=== PATIENT | female | born 1955 | race Caucasian/White ===

== ENCOUNTER 2017-03-13 11:10 | Day surgery (SDC) | payer MEDICARE ==
[~2017-03-13 11:10] MED LIST: ALEN70 PO; AMLO5 PO; CALCAVITD PO; DIAZ5 PO; DULO60 PO; GABA300 PO; HYDACE10B PO; HYDACE5 PO; HYDACE5325 PO; LEVFLO500 PO; LOSHYD100 PO; MULVITA PO; NAPR500 PO; PREG150; PROM25 PO; PROP40 PO; PROP60 PO; Percocet 5-3251 EACH PO; SERT100 PO; [UNRECOGNIZED DRUG - CODE]
== END 2017-03-13 11:40 | disposition home or self-care (01) ==
LOC: ORSCSDS 11:10
DX: M54.16 Radiculopathy, lumbar region (principal); I10 Essential (primary) hypertension; F32.9 Major depressive disorder, single episode, unspecified; Z79.899 Other long term (current) drug therapy
CPT/HCPCS: 99211

== ENCOUNTER 2018-12-03 14:47 | Emergency (ER) | payer OTHER, MEDICARE ==
[~2018-12-03] VITALS: Ht 167.6 cm; Wt 56.7 kg
[2018-12-03 15:51] LABS: BASOPHILS PERCENT AUTO 1 % (0-2); EOSINOPHILS ABSOLUTE AUTO 0.23 K/mm3 (0.00-0.68); EOSINOPHILS PERCENT AUTO 3 % (0-6); Hematocrit 45.7 % (33.0-51.0); Hemoglobin 14.6 g/dL (11.5-16.0); IMMATURE GRAN ABSOLUTE AUTO 0.02 K/mm3 (0.00-0.10); IMMATURE GRAN PERCENT AUTO 0 % (0-1); LYMPHOCYTES PERCENT AUTO 20 % (21-46); MONOCYTES ABSOLUTE AUTO 0.84 K/mm3 (0.16-1.47); MONOCYTES PERCENT AUTO 12 % (4-13); Mean Corpuscular HGB 28.6 pg (26.0-34.0); Mean Corpuscular HGB Conc 31.9 g/dL (31.5-36.5); Mean Corpuscular Volume 89 fL (80-100); Mean Platelet Volume 9.2 fL (9.1-12.4); NEUTROPHILS ABSOLUTE AUTO 4.39 K/mm3 (1.96-9.15); NEUTROPHILS PERCENT AUTO 63 % (41-73); Platelet Count 392 K/mm3 (150-400); RDW Coefficient Variation 13.2 % (11.7-14.2); RDW Standard Deviation 43.6 fL (35.1-46.3); Red Blood Cell Count 5.11 M/mm3 (3.80-5.20); White Blood Cell Count 6.98 K/mm3 (4.00-11.30)
[2018-12-03 16:03] LABS: Alanine Aminotransfer (ALT/SGP 21 U/L (12-78); Albumin, Blood 4.1 g/dL (3.4-5.0); Alk Phos 71 U/L (50-136); Anion Gap 4 mmol/L (6-16); Aspartate Aminotrans (AST/SGOT 26 U/L (12-37); Bilirubin, Total 0.4 mg/dL (0.1-1.0); Blood Urea Nitrogen 7 mg/dL (8-24); CO2, Blood 31 mmol/L (21-32); Calcium, Blood 10.1 mg/dL (8.5-10.1); Chloride, Blood 103 mmol/L (98-108); Creatinine, Blood 0.64 mg/dL (0.40-1.00); Globulin, Blood 4.1 g/dL (2.2-4.0); Glomerular Filtration Rate >60 (60-); Glucose, Blood 99 mg/dL (70-99); Potassium, Blood 3.9 mmol/L (3.5-5.5); Sodium, Blood 138 mmol/L (136-145); Total Protein, Blood 8.2 g/dL (6.4-8.2)
[2018-12-03] MEDS ORDERED: IBUP800 PO (18:38)
[2018-12-03] MEDS ORDERED: Robaxin-750750 MG PO (18:38)
== END 2018-12-03 18:46 | disposition home or self-care (01) ==
LOC: ER 14:47
PROVIDERS: Physician Assistant
DX: S16.1XXA Strain of muscle, fascia and tendon at neck level, initial encounter (principal); I10 Essential (primary) hypertension; W19.XXXA Unspecified fall, initial encounter; Z88.1 Allergy status to other antibiotic agents; Z79.899 Other long term (current) drug therapy; Z87.891 Personal history of nicotine dependence
CPT/HCPCS: 36415; 80053; 84484; 85025; 93005; 93010; 99283-25

== ENCOUNTER 2019-03-18 10:58 | Day surgery (SDC) | payer MEDICARE ==
[~2019-03-18] VITALS: Ht 167.6 cm; Wt 55.7 kg
[~2019-03-18 10:58] MED LIST changes: +IBUP800 PO; +Robaxin-750750 MG PO
== END 2019-03-18 12:00 | disposition home or self-care (01) ==
LOC: ORSCSDS 10:58
PROVIDERS: Anesthesiology
PROC: 3E0R33Z Introduction of Anti-inflammatory into Spinal Canal, Percutaneous Approach (ICD-10-PCS; principal; 2019-03-18 12:00)
DX: M54.16 Radiculopathy, lumbar region (principal); I10 Essential (primary) hypertension
CPT/HCPCS: J1040

== ENCOUNTER 2019-06-07 04:17 | Emergency (ER) | payer MEDICARE ==
[~2019-06-07] VITALS: Ht 167.6 cm; Wt 53.5 kg
[2019-06-07] MEDS ORDERED: METO25ER (04:26)
[2019-06-07 04:39] LABS: BASOPHILS ABSOLUTE AUTO 0.07 K/mm3 (0.00-0.23); BASOPHILS PERCENT AUTO 1 % (0-2); EOSINOPHILS ABSOLUTE AUTO 0.17 K/mm3 (0.00-0.68); EOSINOPHILS PERCENT AUTO 2 % (0-6); Hematocrit 44.3 % (33.0-51.0); Hemoglobin 14.9 g/dL (11.5-16.0); IMMATURE GRAN ABSOLUTE AUTO 0.04 K/mm3 (0.00-0.10); IMMATURE GRAN PERCENT AUTO 1 % (0-1); LYMPHOCYTES ABSOLUTE AUTO 1.63 K/mm3 (0.84-5.20); LYMPHOCYTES PERCENT AUTO 21 % (21-46); MONOCYTES PERCENT AUTO 14 % (4-13); Mean Corpuscular HGB 29.6 pg (26.0-34.0); Mean Corpuscular HGB Conc 33.6 g/dL (31.5-36.5); Mean Corpuscular Volume 88 fL (80-100); Mean Platelet Volume 9.3 fL (9.1-12.4); NEUTROPHILS ABSOLUTE AUTO 4.64 K/mm3 (1.96-9.15); NEUTROPHILS PERCENT AUTO 61 % (41-73); Platelet Count 293 K/mm3 (150-400); RDW Coefficient Variation 14.1 % (11.7-14.2); RDW Standard Deviation 45.4 fL (35.1-46.3); Red Blood Cell Count 5.03 M/mm3 (3.80-5.20); White Blood Cell Count 7.65 K/mm3 (4.00-11.30)
[2019-06-07 04:58] LABS: Troponin I <0.015 ng/mL (0.000-0.040)
[2019-06-07 05:01] LABS: Alanine Aminotransfer (ALT/SGP 26 U/L (12-78); Albumin/Globulin Ratio 1.1 (0.8-1.8); Alk Phos 39 U/L (50-136); Anion Gap 6 mmol/L (6-16); Aspartate Aminotrans (AST/SGOT 28 U/L (12-37); Bilirubin, Total 0.5 mg/dL (0.1-1.0); Blood Urea Nitrogen 8 mg/dL (8-24); Bun/Creatinine Ratio 8.9 (12.0-20.0); CO2, Blood 28 mmol/L (21-32); Calcium, Blood 9.7 mg/dL (8.5-10.1); Chloride, Blood 101 mmol/L (98-108); Creatinine, Blood 0.89 mg/dL (0.40-1.00); Globulin, Blood 3.6 g/dL (2.2-4.0); Glomerular Filtration Rate >60 (60-); Glucose, Blood 99 mg/dL (70-99); Potassium, Blood 4.5 mmol/L (3.5-5.5); Sodium, Blood 135 mmol/L (136-145); Total Protein, Blood 7.6 g/dL (6.4-8.2)
== END 2019-06-07 06:21 | disposition home or self-care (01) ==
LOC: ER 04:17
PROVIDERS: Emergency Medicine
DX: I10 Essential (primary) hypertension (principal); K59.00 Constipation, unspecified; M41.9 Scoliosis, unspecified; Z88.1 Allergy status to other antibiotic agents; Z79.899 Other long term (current) drug therapy; Z87.891 Personal history of nicotine dependence
CPT/HCPCS: 36415; 71045; 80053; 84484; 85025; 93005; 93010; 96374; 96375; 99284-25; A9270-GY; J0360; J2405; J2765

== ENCOUNTER 2019-08-14 11:47 | Day surgery (SDC) | payer MEDICARE ==
[~2019-08-14] VITALS: Ht 167.6 cm; Wt 48.5 kg
[~2019-08-14 11:47] MED LIST changes: +METO25ER
[2019-08-14] MEDS ORDERED: Norco 5-325 Ta1 EACH (12:16)
[2019-08-14] MEDS ORDERED: ALPR.5 (12:16)
[2019-08-14] MEDS ORDERED: LISI20 (12:16)
[2019-08-14] MEDS ORDERED: SERT50 (12:16)
--- NOTE | 2019-08-14 12:29 | NUR ---
08/14/19 1229 Koki Brewer CALLED INTO PATIENT ROOM BY CHEO DUE TO PATIENTS BP BEING EXTREMELY ELEVATED. I ADJUST THE BP CUFF AND TAKE IT AGAIN AND I GET A READING OF 234/108 WHICH IS THE LOWEST OF ALL READINGS SO FAR. DISCUSSION WITH THE PATIENT AND SHE TELLS ME SHE TOOK HER LISINOPRIL THIS MORNING SCHEDULED BUT SHE WAS TOLD BY THE OFFICE NOT TO TAKE HER HYDROCODONE FOR BACK PAIN. SHE FEELS THIS IS THE REASON FOR HER ELEVATED PRESSURE. SHE RATES HER PAIN IN HER BACK AT 9/10. PHONE CALL TO DR VELASCO AND ALL THIS INFORMATION IS RELAYED TO HIM. HE ASKS ME TO HAVE DR COOL EVALUATE PATIENT AND SEE IF IV FENTANYL WOULD BE APPROPRIATE. I INFORM HIM DR COOL IS NOT HERE TODAY. HE ASKS ME TO FIND ONCALL ANESTHESIA TO COME AND EVALUATE THIS PATIENT IN PLACE OF DR COOL. I CALLED THE MAIN OR AND SPOKE WITH LEIGH AND HE TELLS ME NO ANESTHESIOLOGIST IS AVAILABLE AT THIS TIME, THAT EVERYONE IS IN OPERATING ROOM WITH CASE. WE WILL AWAIT DR NIX ARRIVAL
--- NOTE | 2019-08-14 14:21 | NUR ---
08/14/19 1421 Koki Brewer LATE ENTRY---PATIENT INTO ENDO 1 AT 1254. GIVEN A TOTAL OF 100MCG OF IV FENTANYL IN INCRIMENTAL DOSES PER DR VELASCO. PATIENT STILL HAS ELEVATED BLOOD PRESSURE. PATIENT RATES HER PAIN AFTER THE TOTAL FENTANYL 100MCG 6/10. DR VELASCO THEM ORDERS IV VERSED FOR A TOTAL OF 2MG AND WE CONTINUE TO MONITOR BLOOD PRESSURE. THERE WAS NO DROP OF HER BLOOD PRESSURE THROUGHOUT THE TIME IN THE ENDO ROOM AND THE PROCEDURE WAS NEVER STARTED. THE PATIENT WAS TAKEN OUT OF THE ENDO ROOM AWAKE AT 1320. DR VELSACO ORDERS THAT SHE GO TO THE ER FOR EVALUATION OF HER BLOOD PRESSURE AND MANAGEMENT. PATIENT AWARE AND AGREES.
--- NOTE | 2019-08-14 15:09 | NUR ---
08/14/19 1509 Koki Brewer LATE ENTRY----DR VELASCO GAVE ORDER TO HEP LOCK THE IV AND SEND THE PATIENT TO THE ER. THIS WAS DONE PER HIS ORDER. I DID CALL THE ER AND SPOKE WITH NURSE AND GAVE REPORT. I ALSO GAVE THE PATIENT A COPY OF THE MAR THAT SHOWED THE FENTANYL AND VERSED AND GAVE HER A COPY OF THE VITAL SIGNS TO TAKE WITH HER TO THE ER. PATIENT AND TAKEN TO ER BY RENNY BURGERCLIENT RELATIONSHIP EXECUTIVE NURSE AND PATIENT WAS IN TRANSPORT CHAIR
== END 2019-08-14 13:46 | disposition home or self-care (01) ==
LOC: ORSCSDS 11:47
PROVIDERS: Internal Medicine Gastroenterology
PROC: 0DJ08ZZ Inspection of Upper Intestinal Tract, Via Natural or Artificial Opening Endoscopic (ICD-10-PCS; principal; 2019-08-14 13:00)
DX: R63.4 Abnormal weight loss (principal); Z80.0 Family history of malignant neoplasm of digestive organs; F17.210 Nicotine dependence, cigarettes, uncomplicated; R11.0 Nausea; Z79.899 Other long term (current) drug therapy
CPT/HCPCS: J2250; J2704; J3010; J7120

== ENCOUNTER 2019-08-14 13:49 | Emergency (ER) | payer MEDICARE ==
[~2019-08-14] VITALS: Ht 167.6 cm; Wt 48.5 kg
[~2019-08-14 13:49] MED LIST changes: +ALPR.5; +LISI20; +Norco 5-325 Ta1 EACH; +SERT50
[2019-08-14 14:48] LABS: BASOPHILS ABSOLUTE AUTO 0.07 K/mm3 (0.00-0.23); BASOPHILS PERCENT AUTO 1 % (0-2); EOSINOPHILS ABSOLUTE AUTO 0.09 K/mm3 (0.00-0.68); EOSINOPHILS PERCENT AUTO 1 % (0-6); Hematocrit 43.6 % (33.0-51.0); Hemoglobin 13.9 g/dL (11.5-16.0); IMMATURE GRAN ABSOLUTE AUTO 0.02 K/mm3 (0.00-0.10); IMMATURE GRAN PERCENT AUTO 0 % (0-1); LYMPHOCYTES ABSOLUTE AUTO 1.03 K/mm3 (0.84-5.20); LYMPHOCYTES PERCENT AUTO 15 % (21-46); MONOCYTES ABSOLUTE AUTO 0.81 K/mm3 (0.16-1.47); MONOCYTES PERCENT AUTO 12 % (4-13); Mean Corpuscular HGB 29.9 pg (26.0-34.0); Mean Corpuscular HGB Conc 31.9 g/dL (31.5-36.5); Mean Corpuscular Volume 94 fL (80-100); Mean Platelet Volume 9.1 fL (9.1-12.4); NEUTROPHILS ABSOLUTE AUTO 4.67 K/mm3 (1.96-9.15); NEUTROPHILS PERCENT AUTO 70 % (41-73); Platelet Count 301 K/mm3 (150-400); RDW Coefficient Variation 12.2 % (11.7-14.2); RDW Standard Deviation 42.4 fL (35.1-46.3); Red Blood Cell Count 4.65 M/mm3 (3.80-5.20); White Blood Cell Count 6.69 K/mm3 (4.00-11.30)
[2019-08-14 15:03] LABS: Alanine Aminotransfer (ALT/SGP 34 U/L (12-78); Albumin, Blood 3.5 g/dL (3.4-5.0); Alk Phos 39 U/L (50-136); Anion Gap 6 mmol/L (6-16); Aspartate Aminotrans (AST/SGOT 35 U/L (12-37); Bilirubin, Total 0.6 mg/dL (0.1-1.0); Blood Urea Nitrogen 8 mg/dL (8-24); Bun/Creatinine Ratio 13.1 (12.0-20.0); CO2, Blood 25 mmol/L (21-32); Chloride, Blood 107 mmol/L (98-108); Creatinine, Blood 0.61 mg/dL (0.40-1.00); Globulin, Blood 3.5 g/dL (2.2-4.0); Glomerular Filtration Rate >60 (60-); Glucose, Blood 76 mg/dL (70-99); Potassium, Blood 3.7 mmol/L (3.5-5.5); Sodium, Blood 138 mmol/L (136-145); Troponin I <0.015 ng/mL (0.000-0.040)
== END 2019-08-14 17:25 | disposition home or self-care (01) ==
LOC: ER 13:49
PROVIDERS: Physician Assistant
DX: I10 Essential (primary) hypertension (principal); F41.9 Anxiety disorder, unspecified; Z88.1 Allergy status to other antibiotic agents; Z79.899 Other long term (current) drug therapy; F17.200 Nicotine dependence, unspecified, uncomplicated
CPT/HCPCS: 36415; 80053; 83880; 84484; 85025; 93005; 93010; 96374; 96375; 96376; 99283-25; A9270-GY; J0360; J2060

== ENCOUNTER 2021-10-20 08:31 | Day surgery (SDC) | payer MEDICARE ==
[~2021-10-20] VITALS: Ht 167.6 cm; Wt 50.5 kg
[~2021-10-20 08:31] MED LIST changes: +HYDROCHLOROTH12.5 MG PO; +Inderal 20 mg T20 MG PO; +ZESTRIL40 M1 PO
--- NOTE | 2021-10-20 09:38 | NUR ---
10/20/21 0938 Dominga Germain HISTORY, CHART, MEDICATIONS AND ALLERGIES REVIEWED BEFORE START OF PROCEDURE. PATIENT CONFIRMS NPO STATUS AND AGREES WITH SCHEDULED PROCEDURE. 3-LEAD EKG REVIEWED WITH PHYSICIAN PRIOR TO START OF PROCEDURE. MONITOR INTACT WITH CONTINUOUS PULSE OXIMETRY,CAPNOGRAPHY, 3-LEAD EKG, INTERMITTENT BP. SUPPLEMENTAL O2 TO BE TITRATED THROUGHOUT PROCEDURE TO MAINTAIN O2 SATURATION ABOVE 90%. PATIENT DETERMINED TO BE ASA APPROPRIATE FOR PROPOFOL SEDATION PRIOR TO START OF PROCEDURE BY DR. VELASCO.
--- NOTE | 2021-10-20 10:57 | NUR ---
Patient States Post-Procedure ride home has been arranged. Discharged via wheelchair to private car for ride home.
== END 2021-10-20 10:56 | disposition home or self-care (01) ==
LOC: ORD 08:31 → ORSCMMR 08:31 → ORD 10:00
PROVIDERS: Internal Medicine Gastroenterology
PROC: 0DJD8ZZ Inspection of Lower Intestinal Tract, Via Natural or Artificial Opening Endoscopic (ICD-10-PCS; principal; 2021-10-20 10:00)
DX: K59.00 Constipation, unspecified (principal); Z86.010 Personal history of colon polyps; K57.30 Diverticulosis of large intestine without perforation or abscess without bleeding; I10 Essential (primary) hypertension; Z79.899 Other long term (current) drug therapy
CPT/HCPCS: J2704; J7120

== ENCOUNTER 2022-05-03 06:47 | Emergency (ER) | payer MEDICARE ==
[~2022-05-03] VITALS: Ht 157.5 cm; Wt 54.4 kg
[2022-05-03] MEDS ORDERED: MORPHINE SULFAT15 M1 PO (06:59)
[2022-05-03 07:23] LABS: Source, Urine Straight Cath
[2022-05-03 07:30] LABS: Bilirubin, Urine Neg (Neg); Blood, Urine 1+ (Neg); Glucose Qualitative, Urine Neg (Neg); Ketones, Urine Neg (Neg); Leukocyte Esterase, Urine 1+ (Neg); Nitrite, Urine Neg (Neg); Protein, Urine 1+ (Neg); Urobilinogen, Urine NORM (Normal)
[2022-05-03 07:37] LABS: Color, Urine Yellow (P-Yellow)
[2022-05-03 07:38] LABS: Appearance, Urine Hazy (Clear)
[2022-05-03 07:39] LABS: Bacteria Rare /hpf; Red Blood Cells, Urine 0-2 /hpf (0-2); Squamous Epithelial Cells Mod /hpf (Few)
[2022-05-03 07:45] LABS: BASOPHILS ABSOLUTE AUTO 0.05 K/mm3 (0.00-0.23); BASOPHILS PERCENT AUTO 1 % (0-2); EOSINOPHILS ABSOLUTE AUTO 0.17 K/mm3 (0.00-0.68); EOSINOPHILS PERCENT AUTO 2 % (0-6); Hematocrit 39.9 % (33.0-51.0); Hemoglobin 13.7 g/dL (11.5-16.0); IMMATURE GRAN ABSOLUTE AUTO 0.03 K/mm3 (0.00-0.10); IMMATURE GRAN PERCENT AUTO 0 % (0-1); LYMPHOCYTES ABSOLUTE AUTO 1.35 K/mm3 (0.84-5.20); LYMPHOCYTES PERCENT AUTO 18 % (21-46); MONOCYTES ABSOLUTE AUTO 0.72 K/mm3 (0.16-1.47); MONOCYTES PERCENT AUTO 10 % (4-13); Mean Corpuscular HGB 29.3 pg (26.0-34.0); Mean Corpuscular HGB Conc 34.3 g/dL (31.5-36.5); Mean Corpuscular Volume 85 fL (80-100); Mean Platelet Volume 8.5 fL (9.1-12.4); NEUTROPHILS PERCENT AUTO 69 % (41-73); Platelet Count 350 K/mm3 (150-400); RDW Coefficient Variation 12.8 % (11.7-14.2); RDW Standard Deviation 39.4 fL (35.1-46.3); Red Blood Cell Count 4.68 M/mm3 (3.80-5.20); White Blood Cell Count 7.42 K/mm3 (4.00-11.30)
[2022-05-03] MEDS ORDERED: Pyridium100 MG PO (08:31)
[2022-05-03 08:40] LABS: Calcium, Ionized (POC) 0.99 mmol/L (1.10-1.46); Chloride (POC) 108 mmol/L (98-108); Creatinine (POC) 0.5 mg/dL (0.6-1.0); Glucose (ISTAT POC) 83 mg/dL (70-99); Hemoglobin (POC) 12.2 g/dL (12.0-16.0); Sodium (POC) 140 mmol/L (135-148); Total CO2 (POC) 23 mmol/L (21-32)
== END 2022-05-03 09:57 | disposition home or self-care (01) ==
LOC: ER 06:47
PROVIDERS: Emergency Medicine
DX: R39.15 Urgency of urination (principal); G89.29 Other chronic pain; I10 Essential (primary) hypertension; F17.200 Nicotine dependence, unspecified, uncomplicated; Z88.1 Allergy status to other antibiotic agents; Z79.899 Other long term (current) drug therapy
CPT/HCPCS: 36415; 51701; 80047; 81001; 85014; 85025; 87086; 99283-25; A9270; J7030

== ENCOUNTER → 2022-08-15 | Outpatient (CLI) | payer MEDICARE ==
[~2022-08-15] MED LIST changes: +MORPHINE SULFAT15 M1 PO; +Pyridium100 MG PO
== END | disposition home or self-care (01) ==
LOC: LAB SHORT 09:30 → LAB 09:30
DX: R35.0 Frequency of micturition (principal)
CPT/HCPCS: 87086

== ENCOUNTER 2022-09-10 10:31 | Day surgery (SDC) | payer MEDICARE ==
[~2022-09-10] VITALS: Ht 167.6 cm; Wt 46.5 kg
[2022-09-10] MEDS ORDERED: HYDACE10B PO (10:59)
--- NOTE | 2022-09-10 11:39 | NUR ---
09/10/[address] DELAYED IN DR SCANLON'S ROOM WHICH WOULD THEN IN TURN DELAY DR UNDERWOOD START TIME DR ROCHA IS SCHEDULED FOR THIS CASE IN DR NIX ROOM SO DR COOL WAS ASKED TO STEP IN AND DO THIS CASE FOR DR ROCHA TO PREVENT FURTHER DELAYS.
[2022-09-10 13:00] VITALS: BP 139/99
== END 2022-09-10 13:04 | disposition home or self-care (01) ==
LOC: ORSCSDS 10:31
PROVIDERS: Internal Medicine Gastroenterology
PROC: 0DBP8ZX Excision of Rectum, Via Natural or Artificial Opening Endoscopic, Diagnostic (ICD-10-PCS; principal; 2022-09-10 11:30)
DX: K59.09 Other constipation (principal); Z86.010 Personal history of colon polyps; K57.30 Diverticulosis of large intestine without perforation or abscess without bleeding; K62.1 Rectal polyp; I10 Essential (primary) hypertension; F41.9 Anxiety disorder, unspecified; F32.A Depression, unspecified; Z79.899 Other long term (current) drug therapy
CPT/HCPCS: 88305; J2250; J2704; J7120

== ENCOUNTER → 2023-01-03 | Outpatient (CLI) | payer MEDICARE | LOC: LAB SHORT 12:00 → LAB 12:00 | DX: N12 Tubulo-interstitial nephritis, not specified as acute or chronic (principal) | CPT/HCPCS: 87077; 87086; 87186 ==

== ENCOUNTER → 2023-02-04 | Outpatient (CLI) | payer MEDICARE | END | disposition home or self-care (01) | LOC: LAB 12:12 → LAB SHORT 12:12 | DX: N39.0 Urinary tract infection, site not specified (principal) | CPT/HCPCS: 87077; 87086; 87186 ==

== ENCOUNTER 2024-01-07 13:08 | Inpatient (IN) | payer MEDICARE ==
[~2024-01-07] VITALS: Ht 160 cm; Wt 59.4 kg
[~2024-01-07 13:08] MED LIST changes: +ASPI81CH PO; +Carvedilol12.5 MG PO; +LISI20 PO; -ZESTRIL40 M1 PO
[2024-01-07] MEDS ORDERED: DICL75ER PO (13:57)
[2024-01-07] MEDS ORDERED: PREGABALIN50 MG PO (13:57)
[2024-01-07] MEDS ORDERED: FentaNYL Citrate 50 MCG/ML 2 ML Injection IV ONE (14:35)
[2024-01-07] MEDS ORDERED: Ondansetron HCl 2 MG / ML 2ML Vial IV ONE (14:35)
[2024-01-07 15:33] LABS: BASOPHILS ABSOLUTE AUTO 0.09 K/mm3 (0.00-0.23); BASOPHILS PERCENT AUTO 1 % (0-2); EOSINOPHILS ABSOLUTE AUTO 0.06 K/mm3 (0.00-0.68); EOSINOPHILS PERCENT AUTO 0 % (0-6); Hematocrit 38.2 % (33.0-51.0); Hemoglobin 13.4 g/dL (11.5-16.0); IMMATURE GRAN ABSOLUTE AUTO 0.09 K/mm3 (0.00-0.10); IMMATURE GRAN PERCENT AUTO 1 % (0-1); LYMPHOCYTES PERCENT AUTO 6 % (21-46); MONOCYTES ABSOLUTE AUTO 1.34 K/mm3 (0.16-1.47); MONOCYTES PERCENT AUTO 8 % (4-13); Mean Corpuscular HGB 27.1 pg (26.0-34.0); Mean Corpuscular HGB Conc 35.1 g/dL (31.5-36.5); Mean Corpuscular Volume 77 fL (80-100); NEUTROPHILS ABSOLUTE AUTO 14.02 K/mm3 (1.96-9.15); NEUTROPHILS PERCENT AUTO 85 % (41-73); Platelet Count 453 K/mm3 (150-400); RDW Coefficient Variation 13.8 % (11.7-14.2); RDW Standard Deviation 38.9 fL (35.1-46.3); Red Blood Cell Count 4.94 M/mm3 (3.80-5.20)
[2024-01-07 15:51] LABS: International Normalized Ratio 0.96; Prothrombin Time Results 10.3 Sec (9.7-11.5)
[2024-01-07 15:57] LABS: Source, Urine Foley catheter
[2024-01-07 16:00] LABS: Albumin, Blood 3.2 g/dL (3.4-5.0); Albumin/Globulin Ratio 0.8 (0.8-1.8); Bilirubin, Total 0.5 mg/dL (0.1-1.0); Bun/Creatinine Ratio 31.9 (12.0-20.0); Calcium, Blood 9.4 mg/dL (8.5-10.1); Creatinine, Blood 0.5 mg/dL (0.40-1.00); Globulin, Blood 3.9 g/dL (2.2-4.0); Potassium, Blood 4.4 mmol/L (3.5-5.5); Total Protein, Blood 7.1 g/dL (6.4-8.2)
[2024-01-07 16:07] LABS: Appearance, Urine Cloudy (Clear); Bilirubin, Urine Neg (Neg); Blood, Urine 2+ (Neg); Color, Urine Yellow (P-Yellow); Glucose Qualitative, Urine Neg (Neg); Ketones, Urine Neg (Neg); Leukocyte Esterase, Urine 3+ (Neg); Nitrite, Urine Pos (Neg); Protein, Urine 1+ (Neg); Specific Gravity, Urine 1.015 (1.003-1.022); Urobilinogen, Urine NORM (Normal); pH, Urine 6.5 (5.0-8.0)
[2024-01-07 16:48] LABS: White Blood Cells, Urine TNTC /hpf (0-5)
[2024-01-07 16:49] LABS: Bacteria Many /hpf; Squamous Epithelial Cells Few /hpf (Few)
[2024-01-07] MEDS ORDERED: FLU VACC TS2024-25(6MOS UP)/PF 45 MCG/0.5 ML SYRINGE IM PRN (17:00)
[2024-01-07] MEDS ORDERED: NS 1,000 ML IV SCH (17:00)
[2024-01-07] MEDS ORDERED: Lisinopril 20 MG Tab PO SCH (17:00)
[2024-01-07] MEDS ORDERED: HYDROmorphone HCl/Pf 1MG SYR IV PRN (17:05)
[2024-01-07] MEDS ORDERED: OxyCODONE HCL 5 MG TAB PO PRN (17:05)
[2024-01-07] MEDS ORDERED: CefTRIAXone Sodium 1,000 MG in NS 100 ML IV SCH (17:30)
[2024-01-07 19:54] VITALS: BP 173/101
[2024-01-07] MEDS ORDERED: HydrALAZINE HCl 20 MG / ML 1ML Vial IV PRN (20:20)
[2024-01-07] MEDS ORDERED: Ondansetron HCl 2 MG / ML 2ML Vial IV PRN (20:20)
[2024-01-07 20:53] LABS: Bun/Creatinine Ratio 36.2 (12.0-20.0); Calcium, Blood 9.7 mg/dL (8.5-10.1); Creatinine, Blood 0.47 mg/dL (0.40-1.00); Potassium, Blood 4.2 mmol/L (3.5-5.5)
[2024-01-07 20:59] VITALS: BP 174/95
[2024-01-07] MEDS ORDERED: Pregabalin 50 MG Capsule PO SCH (21:00)
[2024-01-07] MEDS ORDERED: Polyethylene Glycol 3350 17 gm PO SCH (21:00)
[2024-01-07 21:12] LABS: Source, Urine Foley catheter
[2024-01-07 21:18] LABS: Appearance, Urine Turbid (Clear); Bilirubin, Urine Neg (Neg); Blood, Urine 4+ (Neg); Color, Urine Yellow (P-Yellow); Glucose Qualitative, Urine Neg (Neg); Ketones, Urine 2+ (Neg); Leukocyte Esterase, Urine 3+ (Neg); Nitrite, Urine Pos (Neg); Protein, Urine 3+ (Neg); Urobilinogen, Urine 1+ (Normal)
[2024-01-07 21:24] LABS: Bacteria Many /hpf; White Blood Cells, Urine TNTC /hpf (0-5)
[2024-01-07 21:25] LABS: Squamous Epithelial Cells Mod /hpf (Few)
--- NOTE | 2024-01-07 22:16 | NUR ---
ARRIVAL TO UNIT PT ARRIVED TO UNIT AT APPROX 1940. PT TRANSFERRED TO BED WITH SLIDING SHEET. VERY PAINFUL WITH MOVMENT. L HIP IS SLIGHTLY SWOLLEN ICE PACK PROVIDED TO PT. PT ABLE TO WIGGLE TOES, HAS NEUROPATHY BASELINE TO BILAT LEGS. PT HAD CYR PLACED IN ER. CYR DRAINING CLOUDY YELLOW URINE. NEW SAMPLE SENT TO LAB. PT ORIENTED TO ROOM AND CALL LIGHT. SNACKS PROVIDED. VSS. NO OTHER CONCERNS AT THIS TIME, CALL LIGHT WIHTIN REACH
[2024-01-08] VITALS (24 sets, daily range): BP systolic 90–189; BP diastolic 56–108
--- NOTE | 2024-01-08 04:15 | NUR ---
SHIFT SUMMARY NO ACUTE CHANGES SINCE COMING TO THE FLOOR. PT ABLE TO REST AND PAIN CONTROLLED PER EMAR. PT HAS BEEN NPO SINCE UT FOR POSSIBLE SURGERY TODAY. CYR DRAINING TO GRAVITY AND HAVING CLOUDY YELLOW URINE. PT SLIGHTLY HYPERTENSIVE, WILL GIVE PRN MEDICATIONS IF NEEDED. OTHERWISE VSS. NO OTHER CONCERNS AT THIS TIME, CALL LIGHT WITHIN REACH
[2024-01-08 05:04] LABS: BASOPHILS ABSOLUTE AUTO 0.03 K/mm3 (0.00-0.23); BASOPHILS PERCENT AUTO 0 % (0-2); EOSINOPHILS ABSOLUTE AUTO 0.03 K/mm3 (0.00-0.68); EOSINOPHILS PERCENT AUTO 0 % (0-6); Hematocrit 38.2 % (33.0-51.0); Hemoglobin 13.1 g/dL (11.5-16.0); IMMATURE GRAN ABSOLUTE AUTO 0.04 K/mm3 (0.00-0.10); IMMATURE GRAN PERCENT AUTO 0 % (0-1); LYMPHOCYTES ABSOLUTE AUTO 1.09 K/mm3 (0.84-5.20); LYMPHOCYTES PERCENT AUTO 11 % (21-46); MONOCYTES ABSOLUTE AUTO 0.99 K/mm3 (0.16-1.47); MONOCYTES PERCENT AUTO 10 % (4-13); Mean Corpuscular HGB 26.8 pg (26.0-34.0); Mean Corpuscular HGB Conc 34.3 g/dL (31.5-36.5); Mean Corpuscular Volume 78 fL (80-100); Mean Platelet Volume 8.3 fL (9.1-12.4); NEUTROPHILS ABSOLUTE AUTO 7.37 K/mm3 (1.96-9.15); NEUTROPHILS PERCENT AUTO 77 % (41-73); Platelet Count 430 K/mm3 (150-400); RDW Coefficient Variation 13.9 % (11.7-14.2); RDW Standard Deviation 39.7 fL (35.1-46.3); Red Blood Cell Count 4.88 M/mm3 (3.80-5.20); White Blood Cell Count 9.55 K/mm3 (4.00-11.30)
[2024-01-08 05:45] LABS: Albumin, Blood 3.1 g/dL (3.4-5.0); Albumin/Globulin Ratio 0.8 (0.8-1.8); Bilirubin, Total 0.4 mg/dL (0.1-1.0); Bun/Creatinine Ratio 31.6 (12.0-20.0); Calcium, Blood 9.7 mg/dL (8.5-10.1); Creatinine, Blood 0.47 mg/dL (0.40-1.00); Globulin, Blood 3.7 g/dL (2.2-4.0); Magnesium, Blood 1.8 mg/dL (1.6-2.4); Phosphorus, Blood 2.6 mg/dL (2.5-4.9); Total Protein, Blood 6.8 g/dL (6.4-8.2)
[2024-01-08] MEDS ORDERED: NS 500 ML IV ONE (08:00)
[2024-01-08] MEDS ORDERED: Carvedilol 6.25 MG Tab PO SCH (09:00)
[2024-01-08] MEDS ORDERED: propofoL 40 ML IV ONE (09:58)
[2024-01-08] MEDS ORDERED: FentaNYL Citrate 50 MCG/ML 2 ML Injection ONE (09:58)
[2024-01-08] MEDS ORDERED: Rocuronium Bromide 10 MG/ML 5ML Injection IV ONE (10:44)
[2024-01-08] MEDS ORDERED: Ketorolac Tromethamine 30mg Vial ONE (10:44)
--- NOTE | 2024-01-08 10:45 | NUR ---
Anesthesiologist here to see the patient at bedside. Surgery planned for 12:30 pm.
[2024-01-08] MEDS ORDERED: Promethazine HCl 25 MG Supp PR PRN (10:55)
[2024-01-08] MEDS ORDERED: Bupivacaine 0.5% HCl 5 MG/ML 30MLVIAL ONE (11:18)
[2024-01-08] MEDS ORDERED: Bupivacaine HCl 0.25% 30 ML Injection ONE (11:19)
--- NOTE | 2024-01-08 11:30 | NUR ---
Phenergan suppository given for persistent nausea, unresolved with IV zofran.
--- NOTE | 2024-01-08 11:46 | NUR ---
"Spiritual Care | Pt. Request Pt. is awake in bed and welcomes my visit. Life Partner is at bedside. Pt. is pleasant, but verbalized being unsettled about her upcomeing surgery. Facilitate a life review and listen as Pt. shares about a bad surgery experience at a [facility]. Pt. displays evidence of reasonable anxiety over her procedure today. Listen with emapthya nd a calming presence. Consider matetrs of sanjiv and belief. Lasara with Pt. Pt. displays evidence of being spiritually moved, and verbalized gratitude for the spiritual care visit. Will remain available to the the Pt."
[2024-01-08] MEDS ORDERED: Lactated Ringer's 1,000 ML IV ONE (11:58)
--- NOTE | 2024-01-08 12:08 | NUR ---
History, Chart, Medications and Allergies reviewed before start of procedure. Pre-Op teaching done. Pt verbalizes understanding. Patient confirms NPO status and agrees with scheduled surgery. BE LEFT ALL BELONGINGS IN SURG FLOOR RM. PT HANDED WEDDING RING TO SPOUSE AT .
--- NOTE | 2024-01-08 12:09 | NUR ---
DR. KHOURY AT BS FOR BLOCK CONSENT. TIME OUT FOR PROCEDURE AT 1212 DONE BY THIS RN. PT ON BP AND O2 MONITOR. PT TOLERATED PROCEDURE WELL. PICTURES PRINTED AND BLOCK SHEET COMPLETED.
[2024-01-08] MEDS ORDERED: Labetalol HCL 5 MG/ML 4ML Injection (Single Dose) ONE (12:21)
[2024-01-08] MEDS ORDERED: Labetalol HCL 5 MG/ML 20MLVIAL ONE (12:23)
[2024-01-08] MEDS ORDERED: Labetalol HCL 5 MG/ML 4ML Injection (Single Dose) IV ONE (12:25)
[2024-01-08] MEDS ORDERED: Lactated Ringer's 1,000 ML IV SCH (12:40)
--- NOTE | 2024-01-08 12:43 | NUR ---
Pt left for surgery just before noon. Significant friend Kenneth was at the bedside.
[2024-01-08] MEDS ORDERED: Bupivacaine HCl 0.25% 50 ML Vial INJ ONE (13:53)
[2024-01-08] MEDS ORDERED: CeFAZolin Sodium 2,000 MG in NS 100 ML IV SCH (16:00)
--- NOTE | 2024-01-08 18:04 | NUR ---
SHIFT SUMMARY PT ALERT AND ORIENTED THROUGHOUT SHIFT. SYSTOLIC IN 160S-170S THIS MORNING, BUT CAME DOWN AFTER LISINOPRIL GIVEN THIS MORNING. PT WAS IN 8/10 PAIN WITH LITTLE RELIEF FROM PAIN MEDICATION BEFORE SURGERY. PT ALSO REPORTED FEELING VERY NAUSEATED WITH LITTLE RELIEF FROM ZOFRAN, BUT MODERATE RELIEF FROM PHENERGAN SUPPOSITORY. PT BACK FROM SURGERY THIS AFTERNOON AND RESTING COMFORTABLY IN BED WITH PARTNER AT BEDSIDE.
--- NOTE | 2024-01-09 04:14 | NUR ---
SHIFT SUMMARY POD 1 L LILIANA HIP PT ABLE TO REST DURING THE NIGHT. PAIN MANAGED PER EMAR. TOLERATING PO INTAKE. PT HAD CYR TAKEN OUT AFTER SURGERY, PT HAS BEEN INCONT SINCE. PT HAS NOT BEEN OOB SINCE SURGERY. AQUACEL TO L HIP HAS QUARTER SIZED SPOT OF DRAINAGE BUT OTHERWISE C/D/I. VSS. NO OTHER CONCERNS AT THIS TIME, CALL LIGHT WITHIN REACH
[2024-01-09 04:46] VITALS: BP 125/85
[2024-01-09] MEDS ORDERED: Acetaminophen 325 MG TABLET PO PRN (04:55)
[2024-01-09] MEDS ORDERED: Ketorolac Tromethamine 15mg Vial IV PRN (04:55)
[2024-01-09] MEDS ORDERED: OxyCODONE HCL 5 MG TAB PO PRN (04:55)
[2024-01-09 05:39] LABS: BASOPHILS ABSOLUTE AUTO 0.03 K/mm3 (0.00-0.23); BASOPHILS PERCENT AUTO 0 % (0-2); EOSINOPHILS ABSOLUTE AUTO 0.01 K/mm3 (0.00-0.68); EOSINOPHILS PERCENT AUTO 0 % (0-6); Hematocrit 30.6 % (33.0-51.0); Hemoglobin 10.4 g/dL (11.5-16.0); IMMATURE GRAN ABSOLUTE AUTO 0.04 K/mm3 (0.00-0.10); IMMATURE GRAN PERCENT AUTO 0 % (0-1); LYMPHOCYTES ABSOLUTE AUTO 0.97 K/mm3 (0.84-5.20); LYMPHOCYTES PERCENT AUTO 8 % (21-46); MONOCYTES ABSOLUTE AUTO 1.67 K/mm3 (0.16-1.47); MONOCYTES PERCENT AUTO 14 % (4-13); Mean Corpuscular HGB 26.9 pg (26.0-34.0); Mean Corpuscular Volume 79 fL (80-100); Mean Platelet Volume 8.2 fL (9.1-12.4); NEUTROPHILS ABSOLUTE AUTO 9.06 K/mm3 (1.96-9.15); NEUTROPHILS PERCENT AUTO 77 % (41-73); Platelet Count 363 K/mm3 (150-400); RDW Coefficient Variation 14.5 % (11.7-14.2); RDW Standard Deviation 41.5 fL (35.1-46.3); Red Blood Cell Count 3.87 M/mm3 (3.80-5.20); White Blood Cell Count 11.78 K/mm3 (4.00-11.30)
[2024-01-09 07:17] LABS: Albumin, Blood 2.8 g/dL (3.4-5.0); Albumin/Globulin Ratio 0.9 (0.8-1.8); Bilirubin, Total 0.4 mg/dL (0.1-1.0); Bun/Creatinine Ratio 39.7 (12.0-20.0); Creatinine, Blood 0.38 mg/dL (0.40-1.00); Globulin, Blood 3.2 g/dL (2.2-4.0); Magnesium, Blood 1.9 mg/dL (1.6-2.4); Potassium, Blood 4.3 mmol/L (3.5-5.5)
[2024-01-09 07:20] VITALS: BP 130/87
[2024-01-09] MEDS ORDERED: Enoxaparin 40 MG/0.4 ML SYR SC SCH (09:00)
--- NOTE | 2024-01-09 10:39 | NUR ---
Pt. is awake and sitting up in a recliner when she welcomes my visit. Pt. is pleasant. Pt. verbalized having a rough night after surgery yesterday. Listen with empathy and a calming presence. Pt. displayed evidence of being pleased overall with her care and the procedure. Established greater rapport, and then prayed with the Pt. Pt. reached out her hand in gratitude for the spiritual care visit and the prayers.
[2024-01-09 15:07] VITALS: BP 107/73
[2024-01-09 19:12] VITALS: BP 96/69
--- NOTE | 2024-01-09 19:38 | NUR ---
SHIFT SUMMARY POD1 L LILIANA HIP, A/OX4, VSS, TOLERTING PO, ABLE TO GET UP TO THE CHAIR WITH THERAPY BUT IS A MAX ASSIST WITH TRANSFERS. UP TO CHAIR T/O MOST OF THE SHIFT. NO ACUTE EVENTS THIS SHFIT, CALL LIGHT IN REACH.
[2024-01-09] MEDS ORDERED: Lactobacil 2-S.Thermo-Bifido 1 1 Cap PO SCH (21:00)
[2024-01-10 03:33] VITALS: BP 110/68
--- NOTE | 2024-01-10 04:08 | NUR ---
SHIFT SUMMARY BLESSING WAS ALERT AND FULLY ORIENTED ON ASSESMENT. BP WAS SOFT, AND HAD BEEN TRENDING DOWN, COREG HELD TONIGHT. PAIN WELL MANAGED AT THIS TIME, PT CALLS APPROPRIATELY, AQUACEL INTACT, SMALL SATURATED AREA AT TOP OF DRESSING REMAINS UNCHANGED THIS SHIFT. NO ACUTE EVENTS TONIGHT, NO CHANGES TO PT CONDITION NOTED. PT SLEPT IN RECLINER TONIGHT.
[2024-01-10 05:18] LABS: BASOPHILS ABSOLUTE AUTO 0.06 K/mm3 (0.00-0.23); BASOPHILS PERCENT AUTO 1 % (0-2); EOSINOPHILS ABSOLUTE AUTO 0.39 K/mm3 (0.00-0.68); EOSINOPHILS PERCENT AUTO 4 % (0-6); Hematocrit 25.9 % (33.0-51.0); Hemoglobin 8.8 g/dL (11.5-16.0); IMMATURE GRAN ABSOLUTE AUTO 0.07 K/mm3 (0.00-0.10); IMMATURE GRAN PERCENT AUTO 1 % (0-1); LYMPHOCYTES ABSOLUTE AUTO 1.42 K/mm3 (0.84-5.20); LYMPHOCYTES PERCENT AUTO 13 % (21-46); MONOCYTES ABSOLUTE AUTO 1.49 K/mm3 (0.16-1.47); MONOCYTES PERCENT AUTO 14 % (4-13); Mean Corpuscular HGB 27.2 pg (26.0-34.0); Mean Corpuscular Volume 80 fL (80-100); Mean Platelet Volume 8.4 fL (9.1-12.4); NEUTROPHILS ABSOLUTE AUTO 7.26 K/mm3 (1.96-9.15); NEUTROPHILS PERCENT AUTO 68 % (41-73); Platelet Count 295 K/mm3 (150-400); RDW Coefficient Variation 14.7 % (11.7-14.2); RDW Standard Deviation 43.2 fL (35.1-46.3); Red Blood Cell Count 3.23 M/mm3 (3.80-5.20); White Blood Cell Count 10.69 K/mm3 (4.00-11.30)
[2024-01-10 05:48] LABS: Albumin, Blood 2.6 g/dL (3.4-5.0); Albumin/Globulin Ratio 0.9 (0.8-1.8); Bilirubin, Total 0.3 mg/dL (0.1-1.0); Bun/Creatinine Ratio 27.1 (12.0-20.0); Calcium, Blood 8.6 mg/dL (8.5-10.1); Creatinine, Blood 0.78 mg/dL (0.40-1.00); Magnesium, Blood 2.2 mg/dL (1.6-2.4); Potassium, Blood 4.4 mmol/L (3.5-5.5); Total Protein, Blood 5.6 g/dL (6.4-8.2)
[2024-01-10 07:23] VITALS: BP 111/68
[2024-01-10] MEDS ORDERED: Psyllium 1 EA Pack PO SCH (10:00)
[2024-01-10] MEDS ORDERED: Docusate Sodium 100 MG Cap PO SCH (10:00)
[2024-01-10] MEDS ORDERED: Lactulose 200 GM/300 ML Enema 300ML BTL PR ONE (11:00)
[2024-01-10] MEDS ORDERED: Magnesium Hydroxide Conc 10 ML UDC PO ONE (11:00)
[2024-01-10 13:33] LABS: Influenza A, PCR NEGATIVE (NEGATIVE); Influenza B, PCR NEGATIVE (NEGATIVE); Resp Syncytial Virus, PCR NEGATIVE (NEGATIVE); SARS-Cov-2 (COVID-19) PCR, MMC NEGATIVE (NEGATIVE)
--- NOTE | 2024-01-10 16:47 | NUR ---
DISCHARGE: REPORT PASSED TO RN AT [facility] AT 1630. TRANSPORT HERE FOR PT AT 1635. IV DC'D WNL, TIP INTACT. PT TRANSFERED TO WHEELCHAIR, TRANSPORTER GIVEN DC PACKET. PT LEFT UNIT AT ABOUT 1645
[2024-01-10] MEDS ORDERED: Magnesium Hydroxide Conc 10 ML UDC PO PRN (21:00)
== END 2024-01-10 16:47 | DRG 470 ==
LOC: ER 13:08 → SURS 16:56
PROVIDERS: Emergency Medicine; Hospitalist; Nurse Practitioner Acute Care; Orthopaedic Surgery Sports Medicine; ADMIT Family Medicine
PROC: 0SRS0JZ Replacement of Left Hip Joint, Femoral Surface with Synthetic Substitute, Open Approach (ICD-10-PCS; principal; 2024-01-08 12:30)
DX: S72.92XA Unspecified fracture of left femur, initial encounter for closed fracture (principal); I50.32 Chronic diastolic (congestive) heart failure; E87.1 Hypo-osmolality and hyponatremia; N39.0 Urinary tract infection, site not specified; E44.0 Moderate protein-calorie malnutrition; Z66 Do not resuscitate; B96.20 Unspecified Escherichia coli [E. coli] as the cause of diseases classified elsewhere; Z68.24 Body mass index [BMI] 24.0-24.9, adult; I25.10 Atherosclerotic heart disease of native coronary artery without angina pectoris; I11.0 Hypertensive heart disease with heart failure; M21.372 Foot drop, left foot; K59.09 Other constipation; G62.9 Polyneuropathy, unspecified; Z98.890 Other specified postprocedural states; Z87.891 Personal history of nicotine dependence; Z88.1 Allergy status to other antibiotic agents; Z79.899 Other long term (current) drug therapy; I25.2 Old myocardial infarction; W18.30XA Fall on same level, unspecified, initial encounter
CPT/HCPCS: 0241U; 36415; 51702; 73502; 80048; 80053; 81001; 82550; 83735; 84100; 85025; 85610; 85730; 86850; 86900; 86901; 87077; 87086; 87186; 88305; 88311; 96374-59; 96375-59; 97110; 97162; 97530; 99285-25; A9270; C1776; J0690; J0696; J1171; J1650; J1885; J2405; J2704; J3010; J7040; J7120

== ENCOUNTER → 2025-01-19 | Outpatient (CLI) | payer MEDICARE ==
[~2025-01-19] MED LIST changes: +CEPH500 PO; +DICL75ER PO; +MIRALAX17 GM PO; +ONDA4ODT MM; +PHOS-NAK PO; +PREGABALIN50 MG PO
[2025-01-19 10:08] LABS: BASOPHILS ABSOLUTE AUTO 0.06 K/mm3 (0.00-0.23); BASOPHILS PERCENT AUTO 1 % (0-2); EOSINOPHILS ABSOLUTE AUTO 0.05 K/mm3 (0.00-0.68); EOSINOPHILS PERCENT AUTO 1 % (0-6); Hematocrit 43.1 % (33.0-51.0); Hemoglobin 15.2 g/dL (11.5-16.0); IMMATURE GRAN ABSOLUTE AUTO 0.03 K/mm3 (0.00-0.10); IMMATURE GRAN PERCENT AUTO 0 % (0-1); LYMPHOCYTES ABSOLUTE AUTO 1.29 K/mm3 (0.84-5.20); LYMPHOCYTES PERCENT AUTO 14 % (21-46); MONOCYTES ABSOLUTE AUTO 1.04 K/mm3 (0.16-1.47); MONOCYTES PERCENT AUTO 11 % (4-13); Mean Corpuscular HGB Conc 35.3 g/dL (31.5-36.5); Mean Corpuscular Volume 76 fL (80-100); NEUTROPHILS ABSOLUTE AUTO 6.67 K/mm3 (1.96-9.15); NEUTROPHILS PERCENT AUTO 73 % (41-73); NRBC ABSOLUTE 0.00 K/mm3 (0.00-0.02); NRBC Auto 0.0 /100 WBC (0.0-0.2); Platelet Count 365 K/mm3 (150-400); RDW Coefficient Variation 14.0 % (11.7-14.2); RDW Standard Deviation 38.3 fL (35.1-46.3)
[2025-01-19 10:16] LABS: Alanine Aminotransfer (ALT/SGP 33.0 U/L (12-78); Albumin, Blood 4.3 g/dL (3.4-5.0); Albumin/Globulin Ratio 0.9 (0.8-1.8); Anion Gap 20.0 mmol/L (6-16); Aspartate Aminotrans (AST/SGOT 57.0 U/L (12-37); Bilirubin, Total 0.7 mg/dL (0.1-1.0); Blood Urea Nitrogen 16.0 mg/dL (8-24); CO2, Blood 26.0 mmol/L (21-32); Calcium, Blood 10.2 mg/dL (8.5-10.1); Chloride, Blood 86.0 mmol/L (98-108); Creatinine, Blood 1.06 mg/dL (0.40-1.00); Globulin, Blood 4.6 g/dL (2.2-4.0); Glucose, Blood 89.0 mg/dL (70-99); Potassium, Blood 3.4 mmol/L (3.5-5.5); Sodium, Blood 129.0 mmol/L (136-145); Total Protein, Blood 8.9 g/dL (6.4-8.2)
== END ==
LOC: LAB SHORT 10:00 → LAB 10:00
PROVIDERS: Family Medicine
DX: R10.32 Left lower quadrant pain (principal); R82.90 Unspecified abnormal findings in urine
CPT/HCPCS: 80053; 85025; 87077; 87086; 87147; 87186; 87335

== ENCOUNTER 2025-01-25 10:35 | Inpatient (IN) | payer MEDICARE ==
[~2025-01-25] VITALS: Ht 167.6 cm; Wt 57.5 kg
[2025-01-25] VITALS (41 sets, daily range): BP systolic 56–131; BP diastolic 38–92
[~2025-01-25 10:35] MED LIST changes: -CEPH500 PO; -MIRALAX17 GM PO; -ONDA4ODT MM; -PHOS-NAK PO
[2025-01-25] MEDS ORDERED: NS 1,000 ML IV SCH ×4 (10:40→18:25)
[2025-01-25 10:59] LABS: BASOPHILS ABSOLUTE AUTO 0.10 K/mm3 (0.00-0.23); BASOPHILS PERCENT AUTO 1 % (0-2); EOSINOPHILS ABSOLUTE AUTO 0.03 K/mm3 (0.00-0.68); EOSINOPHILS PERCENT AUTO 0 % (0-6); Hematocrit 42.8 % (33.0-51.0); Hemoglobin 15.3 g/dL (11.5-16.0); IMMATURE GRAN ABSOLUTE AUTO 0.19 K/mm3 (0.00-0.10); IMMATURE GRAN PERCENT AUTO 1 % (0-1); LYMPHOCYTES ABSOLUTE AUTO 0.96 K/mm3 (0.84-5.20); LYMPHOCYTES PERCENT AUTO 6 % (21-46); MONOCYTES ABSOLUTE AUTO 2.18 K/mm3 (0.16-1.47); MONOCYTES PERCENT AUTO 13 % (4-13); Mean Corpuscular HGB Conc 35.7 g/dL (31.5-36.5); Mean Corpuscular Volume 76 fL (80-100); NEUTROPHILS ABSOLUTE AUTO 13.87 K/mm3 (1.96-9.15); NEUTROPHILS PERCENT AUTO 80 % (41-73); NRBC ABSOLUTE 0.00 K/mm3 (0.00-0.02); NRBC Auto 0.0 /100 WBC (0.0-0.2); Platelet Count 266 K/mm3 (150-400); RDW Coefficient Variation 14.8 % (11.7-14.2); RDW Standard Deviation 40.5 fL (35.1-46.3)
[2025-01-25 11:33] LABS: Alanine Aminotransfer (ALT/SGP 27.0 U/L (12-78); Albumin, Blood 3.3 g/dL (3.4-5.0); Albumin/Globulin Ratio 0.8 (0.8-1.8); Anion Gap 29.0 mmol/L (3-11); Aspartate Aminotrans (AST/SGOT 31.0 U/L (12-37); Bilirubin, Total 1.2 mg/dL (0.1-1.0); Blood Urea Nitrogen 161.0 mg/dL (8-24); CO2, Blood 18.0 mmol/L (21-32); Calcium, Blood 9.3 mg/dL (8.5-10.1); Chloride, Blood 80.0 mmol/L (98-108); Creatinine, Blood 9.04 mg/dL (0.40-1.00); Globulin, Blood 4.1 g/dL (2.2-4.0); Glucose, Blood 78.0 mg/dL (70-99); Potassium, Blood 4.8 mmol/L (3.5-5.5); Sodium, Blood 122.0 mmol/L (136-145); Total Protein, Blood 7.4 g/dL (6.4-8.2)
[2025-01-25] MEDS ORDERED: CefTRIAXone Sodium 1,000 MG in NS 100 ML IV ONE (11:35)
[2025-01-25 11:44] LABS: CORONAVIRUS COVID-19 AG Negative (NEGATIVE)
[2025-01-25] MEDS ORDERED: Ondansetron HCl 2 MG / ML 2ML Vial IV ONE (11:45)
[2025-01-25] MEDS ORDERED: Sodium Bicarb 8.4% Inj 150 MEQ in Dextrose 5% 1,000 ML IV SCH (12:30)
[2025-01-25] MEDS ORDERED: FLU VACC TS2025(65UP)/MF59C/PF 45 MCG/0.5 ML SYRINGE IM SCH (12:30)
[2025-01-25] MEDS ORDERED: NS 500 ML IV SCH (13:10)
[2025-01-25 13:36] LABS: pH Blood Venous 7.28 (7.34-7.37)
[2025-01-25] MEDS ORDERED: Ondansetron 4 MG SoluTab MM PRN (15:50)
[2025-01-25] MEDS ORDERED: Lidocaine HCl 2% Jelly 120MG/6ML SYR (20MG PER ML) UR ONE (16:00)
[2025-01-25] MEDS ORDERED: Lidocaine 2% Jelly Uro-Jet UR STA (18:08)
--- NOTE | 2025-01-25 18:20 | NUR ---
NOTIFICATION OF WOUND TO DR. FREEMAN S. NOTIFIED DR. FREEMAN OF EXISTING PRESSURE INJURY ON CHEEK OF RIGHT BUTTOCKS. WOUND IS SCABBED OVER AND APPEARS TO BE A STAGE 2. PICTURES IN THE CHART. MEPILEX OVER TO PROTECT. NO ADDITIONAL ORDERS AT THIS TIME.
[2025-01-25 18:32] LABS: Anion Gap 20.0 mmol/L (3-11); Blood Urea Nitrogen 148.0 mg/dL (8-24); CO2, Blood 18.0 mmol/L (21-32); Calcium, Blood 8.1 mg/dL (8.5-10.1); Chloride, Blood 95.0 mmol/L (98-108); Creatinine, Blood 6.17 mg/dL (0.40-1.00); Glucose, Blood 91.0 mg/dL (70-99); Potassium, Blood 3.8 mmol/L (3.5-5.5); Salicylate 5.6 mg/dL (2.8-20.0); Sodium, Blood 129.0 mmol/L (136-145)
[2025-01-25 18:50] LABS: Source, Urine Clean Catch
[2025-01-25 19:12] LABS: Glucose Qualitative, Urine Neg (Neg); Ketones, Urine 1+ (Neg); Leukocyte Esterase, Urine 1+ (Neg); Protein, Urine 2+ (Neg); Specific Gravity, Urine 1.015 (1.003-1.022); Urobilinogen, Urine 1+ (Normal)
[2025-01-25 19:17] LABS: Bilirubin, Urine 2+ (Neg); Color, Urine Amber (P-Yellow)
--- NOTE | 2025-01-25 19:58 | NUR ---
SHIFT SUMMARY: NEURO: PATIENT ALERT AND ORIENTED X4. PATIENT EASILY FALLS ASLEEP AND REPORTS FATIGUE. REPORTS NEUROPATHY IN BLE AT BASELINE. MOBILITY INTACT BUT WEAK IN ALL 4 EXTREMITIES. PATIENT HAS A PRE-EXISTING PRESSURE INJURY ON RIGHT BUTTOCK CHEEK. SEE NURSE'S NOTE. RESPIRATORY: PATIENT STABLE ON ROOM AIR WITH SPO2 >94%. DENIES SHORTNESS OF BREATH. NO RESPIRATORY DISTRESS NOTED. CARDIAC: UPON ARRIVAL TO THE UNIT, MAPS >65. AFTERNOON PROGRESSED, MAPS STARTED TO STUSTAIN BELOW 65. PATIENT STARTED ON LEVOPHED PER ORDERS. HR IN THE 70S. GI/: PATIENT HAD MULTIPLE LIQUID BROWN STOOLS THIS AFTERNOON. RECTAL TUBE PLACED TO HELP PROTECT SKIN. PATIENT REPORTS THAT SHE RETAINS URINE AT BASELINE AT HOME. CYR PLACED FOR STRICT I'S AND O'S. 700 ML LAM FOUL SMELLING URINE IN COLLECTION BAG UPON PLACEMENT. PATIENT MEDICATED ONCE FOR NAUSEA. PATIENT ABLE TO TOLERATE SMALL SIPS OF LIQUIDS AND SMALL AMOUNTS OF SOFT FOODS. PSYCHSOCIAL: PATIENT'S SPOUSE ANGELIA AT BEDSIDE. HE IS ATTENTIVE TO THE PATIENT AND ENCOURAGING TO HER.
[2025-01-25] MEDS ORDERED: Heparin Sodium,Porcine 5,000 UNIT/0.5 ML SDV SC SCH (21:00)
[2025-01-25 22:15] LABS: Campylobacter Sp Not Detected (NOT DETECT); E. Coli O157 Not Detected (NOT DETECT); Enteroaggregative E. coli-EAEC Not Detected (NOT DETECT); Enteropathogenic E. coli-EPEC Not Detected (NOT DETECT); Enterotoxigenic E. coli-ETEC Not Detected (NOT DETECT); Salmonella Sp Not Detected (NOT DETECT); Shiga Toxin-prod E. coli-STEC Not Detected (NOT DETECT); Shigella/Enteroin E. coli-EIEC Not Detected (NOT DETECT); Vibrio Sp Not Detected (NOT DETECT)
[2025-01-25 22:26] LABS: Anion Gap 18.0 mmol/L (3-11); Blood Urea Nitrogen 144.0 mg/dL (8-24); CO2, Blood 18.0 mmol/L (21-32); Calcium, Blood 8.0 mg/dL (8.5-10.1); Chloride, Blood 99.0 mmol/L (98-108); Creatinine, Blood 4.64 mg/dL (0.40-1.00); Glucose, Blood 117.0 mg/dL (70-99); Potassium, Blood 3.0 mmol/L (3.5-5.5); Sodium, Blood 132.0 mmol/L (136-145)
[2025-01-25] MEDS ORDERED: Potassium Chloride 10 Meq Tablet SA PO ONE (22:50)
[2025-01-26] VITALS (59 sets, daily range): BP systolic 84–156; BP diastolic 50–97
[2025-01-26 02:15] LABS: BASOPHILS ABSOLUTE AUTO 0.07 K/mm3 (0.00-0.23); BASOPHILS PERCENT AUTO 1 % (0-2); EOSINOPHILS ABSOLUTE AUTO 0.08 K/mm3 (0.00-0.68); EOSINOPHILS PERCENT AUTO 1 % (0-6); Hematocrit 36.1 % (33.0-51.0); Hemoglobin 12.4 g/dL (11.5-16.0); IMMATURE GRAN ABSOLUTE AUTO 0.16 K/mm3 (0.00-0.10); IMMATURE GRAN PERCENT AUTO 1 % (0-1); LYMPHOCYTES ABSOLUTE AUTO 1.17 K/mm3 (0.84-5.20); LYMPHOCYTES PERCENT AUTO 9 % (21-46); MONOCYTES ABSOLUTE AUTO 2.63 K/mm3 (0.16-1.47); MONOCYTES PERCENT AUTO 19 % (4-13); Mean Corpuscular HGB Conc 34.3 g/dL (31.5-36.5); Mean Corpuscular Volume 79 fL (80-100); NEUTROPHILS ABSOLUTE AUTO 9.67 K/mm3 (1.96-9.15); NEUTROPHILS PERCENT AUTO 70 % (41-73); NRBC ABSOLUTE 0.00 K/mm3 (0.00-0.02); NRBC Auto 0.0 /100 WBC (0.0-0.2); Platelet Count 273 K/mm3 (150-400); RDW Coefficient Variation 14.6 % (11.7-14.2); RDW Standard Deviation 41.4 fL (35.1-46.3)
[2025-01-26 02:31] LABS: Albumin, Blood 2.7 g/dL (3.4-5.0); Anion Gap 17 mmol/L (3-11); Blood Urea Nitrogen 133 mg/dL (8-24); CO2, Blood 17 mmol/L (21-32); Calcium, Blood 8.2 mg/dL (8.5-10.1); Chloride, Blood 103 mmol/L (98-108); Creatinine, Blood 3.48 mg/dL (0.40-1.00); Glucose, Blood 118 mg/dL (70-99); Phosphorus, Blood 5.2 mg/dL (2.5-4.9); Potassium, Blood 3.3 mmol/L (3.5-5.5); Sodium, Blood 134 mmol/L (136-145)
--- NOTE | 2025-01-26 06:06 | NUR ---
SHIFT SUMMARY PT HAS TOLERATED NIGHT WELL WITH NO SIGNIFICANT EVENTS OR CHANGES IN STATUS. PT HAS REQUIRED MEDICATION PER MAR TO KEEP BP MAP > 65. PT HAS BEEN ABLE TO REST COMFORTABLY IN BED THROUGH MOST OF SHIFT. PT WAS GIVEN ORAL POTASSIUM TWICE THROUGHOUT SHIFT. WHEN PT RECIEVED SECOND DOSE, SHE COMPLAINED OF INDIGESTION AND SOME CHEST PRESSURE. EKG WAS PERFORMED AND MEDICATION WAS GIVEN FOR PTS COMFORT. PT HAS BEEN ABLE TO REST SINCE EVENT AND IS CURRENTLY RESTING COMFORTABLY IN ROOM. PT STATES NO COMPLAINTS OF CHEST PAIN OR PRESSURE AT THIS TIME. CALL LIGHT WITHIN REACH. WILL CONTINUE TO MONITOR UNTIL REPORT PASSED TO DAY SHIFT TEAM.
[2025-01-26] MEDS ORDERED: NS 1,000 ML IV SCH (06:30)
--- NOTE | 2025-01-26 08:17 | NUR ---
ASSUMPTION OF CARE ASSUMED CARE OF PATIENT AT APPROX 0700. PATIENT A&OX4, ABLE TO MOVE ALL EXTREMETIES EQUALLY, MAKES NEEDS KNOWN WITH CALL LIGHT. HR SINUS IN THE 70S. BP STABLE WITH MAPS >65. IV TO LEFT HAND PATENT AND INFUSING LR @ 100ML/HR. IV TO LEFT UPPER ARM PATENT AND SALINE LOCKED. PATIENT ON RA WITH SPO2 >94%. CYR PATENT AND DRAINING URINE TO GRAVITY. RECTAL BAG IN PLACE AND DRAINING STOOL TO GRAVITY. CALL LIGHT IN REACH. BED IN LOWEST POSITION.
[2025-01-26] MEDS ORDERED: Potassium Chloride 10 Meq Tablet SA PO ONE (09:00)
[2025-01-26] MEDS ORDERED: CefTRIAXone Sodium 1,000 MG in NS 100 ML IV SCH (09:30)
--- NOTE | 2025-01-26 10:32 | NUR ---
"Spiirtual Care Visit | Pt. request Pt. is awake in bed when she welcomes my visit. Life Partner Kenneth is present at bedside. Facilitated an update as this Pt. has been seen by this cad manager in the past. Listen with empathy and a calming presence. Pt. displays evidence of awareness and engagement. Pt. welcomed prayer. Prayed with Pt. Pt. verbalized gratitude for the spiritual care visit."
[2025-01-26 10:43] LABS: Anion Gap 12.0 mmol/L (3-11); Blood Urea Nitrogen 104.0 mg/dL (8-24); CO2, Blood 21.0 mmol/L (21-32); Calcium, Blood 8.4 mg/dL (8.5-10.1); Chloride, Blood 108.0 mmol/L (98-108); Creatinine, Blood 2.03 mg/dL (0.40-1.00); Glucose, Blood 131.0 mg/dL (70-99); Potassium, Blood 3.8 mmol/L (3.5-5.5); Sodium, Blood 137.0 mmol/L (136-145)
[2025-01-26 14:43] LABS: Anion Gap 10.0 mmol/L (3-11); Blood Urea Nitrogen 95.0 mg/dL (8-24); CO2, Blood 23.0 mmol/L (21-32); Calcium, Blood 8.4 mg/dL (8.5-10.1); Chloride, Blood 109.0 mmol/L (98-108); Creatinine, Blood 1.61 mg/dL (0.40-1.00); Glucose, Blood 97.0 mg/dL (70-99); Potassium, Blood 3.7 mmol/L (3.5-5.5); Sodium, Blood 138.0 mmol/L (136-145)
--- NOTE | 2025-01-26 17:31 | NUR ---
SHIFT SUMMARY PATIENT A&OX4 AND ABLE TO MAKE NEEDS KNOWN. NO FOCAL DEFICITS. HR SINUS IN THE 70S-80S. BP STABLE WITH MAPS >65. PATIENT ON RA WITH SPO2 >94%. CYR PATENT AND DRAINING URINE TO GRAVITY. RECTAL BAG IN PLACE AND DRAINING TO SUCTION. PATIENT ABLE TO ASSIST WITH TURNS. IV TO RIGHT HAND PATENT AND SALINE LOCKED. IV TO LEFT FA PATENT AND INFUSING LR @ 100MLS/HR. AT BEDSIDE UPDATED ON PLAN OF CARE. CALL LIGHT IN REACH. BED IN LOWEST POSITION.
--- NOTE | 2025-01-26 20:48 | NUR ---
ASSUMED CARE AT 1900 PATIENT IS ALERT AND ORIENTED X4. MINIMAL ASSIST WITH REPOSITIONING. MEDICATED FOR NAUSEA WHICH STARTED WHEN DRINKING MIRALAX. NO EMESIS AT THIS TIME. SP02 94% ON RA, DENIES SOB. HR SR 70s, BP STABLE. DENIES CP/PRESSURE. CYR PATENT AND DRAINING TO GRAVITY. PATIENT REPOSITIONED. CALL LIGHT IN REACH. FAMILY AT BEDSIDE
[2025-01-26] MEDS ORDERED: Polyethylene Glycol 3350 17 gm PO SCH (21:00)
[2025-01-27] VITALS (12 sets, daily range): BP systolic 111–159; BP diastolic 63–88
[2025-01-27 03:36] LABS: BASOPHILS ABSOLUTE AUTO 0.04 K/mm3 (0.00-0.23); BASOPHILS PERCENT AUTO 0 % (0-2); EOSINOPHILS ABSOLUTE AUTO 0.12 K/mm3 (0.00-0.68); EOSINOPHILS PERCENT AUTO 1 % (0-6); Hematocrit 32.7 % (33.0-51.0); Hemoglobin 11.3 g/dL (11.5-16.0); IMMATURE GRAN ABSOLUTE AUTO 0.15 K/mm3 (0.00-0.10); IMMATURE GRAN PERCENT AUTO 2 % (0-1); LYMPHOCYTES ABSOLUTE AUTO 1.18 K/mm3 (0.84-5.20); LYMPHOCYTES PERCENT AUTO 12 % (21-46); MONOCYTES ABSOLUTE AUTO 2.16 K/mm3 (0.16-1.47); MONOCYTES PERCENT AUTO 21 % (4-13); Mean Corpuscular HGB Conc 34.6 g/dL (31.5-36.5); Mean Corpuscular Volume 79 fL (80-100); NEUTROPHILS ABSOLUTE AUTO 6.60 K/mm3 (1.96-9.15); NEUTROPHILS PERCENT AUTO 64 % (41-73); NRBC ABSOLUTE 0.00 K/mm3 (0.00-0.02); NRBC Auto 0.0 /100 WBC (0.0-0.2); Platelet Count 174 K/mm3 (150-400); RDW Coefficient Variation 14.6 % (11.7-14.2); RDW Standard Deviation 42.1 fL (35.1-46.3)
[2025-01-27 04:07] LABS: Albumin, Blood 2.4 g/dL (3.4-5.0); Anion Gap 8 mmol/L (3-11); Blood Urea Nitrogen 60 mg/dL (8-24); CO2, Blood 26 mmol/L (21-32); Calcium, Blood 8.3 mg/dL (8.5-10.1); Chloride, Blood 112 mmol/L (98-108); Creatinine, Blood 0.89 mg/dL (0.40-1.00); Glucose, Blood 79 mg/dL (70-99); Phosphorus, Blood 1.9 mg/dL (2.5-4.9); Potassium, Blood 3.7 mmol/L (3.5-5.5); Sodium, Blood 142 mmol/L (136-145)
--- NOTE | 2025-01-27 05:50 | NUR ---
SHIFT SUMMARY PATIENT REMAINS ALERT AND ORIENTED X4. SP02 96% ON RA. HR SR 67. BP STABLE. CYR PATENT AND DRAINING TO GRAVITY. PATIENT HAD SEVERAL STOOLS THIS SHIFT. SOME LOOSE AND LIQUID BUT SOME WERE MEDIUM SIZED AND FORMED. ASSISTANCE WITH REPOSITIONING THROUGHT THE NIGHT. HEAT PAD FOR STOMACH CRAMPING. UP TO RECLINER THIS MORNING.
[2025-01-27] MEDS ORDERED: Potassium Phosphate Dibasic 15 MM in Dextrose 5% 250 ML IV STA (06:39)
--- NOTE | 2025-01-27 12:19 | NUR ---
REASSESSMENT PT SPENT HALF THE MORNING IN THE CHAIR AND HALF IN THE BED. SHE HAS ONGOING NAUSEA, IMPROVED WITH ODT ZOFRAN. TOLERATING SM AMTS OF FOOD. ENCOURAGING PT TO DRINK HER MIRALAX PT IS REFUSING OTHER BOWEL CARE AT THIS TIME. SHE IS ALERT AND ORIENTED, LUNGS CLEAR, RA, SR. CYR DRAINING YELLOW URINE. PT'S HAS BEEN AT THE BEDSIDE MOST OF THE MORNING ASSISTING HER AND HAS BEEN UPDATED BY NURSING STAFF AND DR. FREEMAN.
--- NOTE | 2025-01-27 13:39 | NUR ---
Pt. is awake in bed and welcomes my visit. Pt. is pleasant. Spouse is at bedside. Facilitated an update and listened withe empathy and a calming presence. Pts. spouse does not participate in the the visit. Considered matters of prognosis and sanjiv . Pt. displayed evidence of being encouraged. Prayed with the Pt. Pt. verbalzied gratitude for the spiritual care visit.
[2025-01-27] MEDS ORDERED: Metoclopramide HCl 5MG / ML 2ML Vial IV PRN (14:00)
--- NOTE | 2025-01-27 17:09 | NUR ---
SHIFT SUMMARY PT HAS BEEN ALERT AND ORIENTED THROUGHOUT THE SHIFT. REMAINS ON RA WITH CLEAR LUNGS. SHE HAS HAD ONGOING NAUSEA AND LACK OF APPETITE. REGLAN GIVEN THIS AFTERNOON, AFTER WHICH PT DID HAVE A BM, BUT ALSO BECAME VERY ANXIOUS. PT ATTRIBUTED IT TO HER BEING GONE FROM THE ROOM FOR TOO LONG, BUT SHE DID NOT SETTLE EVEN ONCE HE WAS BACK IN THE ROOM. SPOKE WITH DR. FREEMAN AND ORDERS FOR HYDROXIZINE PLACED. PT'S ANXIETY IMPROVED AFTER THAT AND SHE SAYS HER NAUSEA IS DOING BETTER TOO.
--- NOTE | 2025-01-27 19:35 | NUR ---
ASSUMED CARE AT APPROX 1900 PATIENT IS ALERT AND ORIENTED X4. 8/10 ABDOMINAL PAIN, WILL MEDICATED PER EMAR AND PATIENT RECIEVING LAXATIVES FOR CONSTIPATION. SP02 >95% ON RA, DENIES SOB. HR SR 70s, BP STABLE. DENIES CP/PRESSURE. CYR PATENT AND DRAINING TO GRAVITY. FAMILY AT BEDSIDE. CALL LIGHT IN REACH
--- NOTE | 2025-01-27 23:38 | NUR ---
PATIENT STATUS UNCHANGED, ALERT AND ORIENTED X4, SP02 95% ON RA. SR 70s AND BP STABLE. CYR CATHETER REMOVED. CALL SO ANGELIA AND UPDATED HIM ON PATIENT TRANSFER. PATIENT TO ROOM 310 AT 2315
--- NOTE | 2025-01-28 02:47 | NUR ---
PROVIDER NOTIFIED PT HAS NO IV ACCESS CURRENTLY , C/O ABDOMINAL DISCOMFORT, NAUSEA AND VOMINTING, ANXIETY , PROVIDER ORDERED 0.5-1 MG ATIVAN PO Q4 PRN
[2025-01-28 04:02] VITALS: BP 162/96
[2025-01-28 05:27] LABS: BASOPHILS ABSOLUTE AUTO 0.04 K/mm3 (0.00-0.23); BASOPHILS PERCENT AUTO 1 % (0-2); EOSINOPHILS ABSOLUTE AUTO 0.24 K/mm3 (0.00-0.68); EOSINOPHILS PERCENT AUTO 3 % (0-6); Hematocrit 33.0 % (33.0-51.0); Hemoglobin 11.1 g/dL (11.5-16.0); IMMATURE GRAN ABSOLUTE AUTO 0.33 K/mm3 (0.00-0.10); IMMATURE GRAN PERCENT AUTO 4 % (0-1); LYMPHOCYTES ABSOLUTE AUTO 1.27 K/mm3 (0.84-5.20); LYMPHOCYTES PERCENT AUTO 15 % (21-46); MONOCYTES ABSOLUTE AUTO 1.75 K/mm3 (0.16-1.47); MONOCYTES PERCENT AUTO 20 % (4-13); Mean Corpuscular HGB Conc 33.6 g/dL (31.5-36.5); Mean Corpuscular Volume 83 fL (80-100); NEUTROPHILS ABSOLUTE AUTO 4.99 K/mm3 (1.96-9.15); NEUTROPHILS PERCENT AUTO 58 % (41-73); NRBC ABSOLUTE 0.00 K/mm3 (0.00-0.02); NRBC Auto 0.0 /100 WBC (0.0-0.2); Platelet Count 183 K/mm3 (150-400); RDW Coefficient Variation 14.6 % (11.7-14.2); RDW Standard Deviation 44.0 fL (35.1-46.3)
[2025-01-28 05:46] LABS: Albumin, Blood 2.4 g/dL (3.4-5.0); Anion Gap 9 mmol/L (3-11); Blood Urea Nitrogen 23 mg/dL (8-24); CO2, Blood 27 mmol/L (21-32); Calcium, Blood 8.4 mg/dL (8.5-10.1); Chloride, Blood 111 mmol/L (98-108); Creatinine, Blood 0.68 mg/dL (0.40-1.00); Glucose, Blood 68 mg/dL (70-99); Phosphorus, Blood 1.2 mg/dL (2.5-4.9); Potassium, Blood 3.9 mmol/L (3.5-5.5); Sodium, Blood 143 mmol/L (136-145)
[2025-01-28 07:23] VITALS: BP 166/87
--- NOTE | 2025-01-28 07:34 | NUR ---
A/Ox4, FORGETFUL AT TIMES, ANXIOUS. ASSUMED CARE AT 2315. UP WITH GAIT BELT, FWW TO AMBULATE; PT FEARFUL OF FALLING/ANXIOUS THOUGH SHE REQUESTED A WALK. PRN ATIVAN AND ATARAX EFFECTIVE. PT STATES "I DON'T FEEL GOOD", HOWEVER REFUSES GIVING MORE SPECIFICS; DENIES PAIN, SOB. PRN ZOFRAN GIVEN FOR NAUSEA. LR 100 ML/HR. SAFETY PRECAUTIONS IN PLACE, CALL LIGHT IN REACH.
--- NOTE | 2025-01-28 09:00 | NUR ---
pt laying in bed awake a/ox3 with occ confusion, coopertive with care, follows commands well, spouce in room, lungs are clear t/o, resp even and unlabored, no cough noted, hrr, no edema noted, ppp+1, cap refill< 3 sec, vs stable, afebrile, piv to rac site is clear and patent, btx4, abd flat soft nontender, voids without diff, skin c/w/d, maew, jasmin, call light in reach.
[2025-01-28] MEDS ORDERED: NS 250 ML IV PRN (09:55)
[2025-01-28] MEDS ORDERED: Potassium Phos/Sodium Phos 250 MG PACK PO ONE (10:15)
[2025-01-28 10:48] VITALS: BP 168/91
[2025-01-28 15:34] VITALS: BP 165/86
--- NOTE | 2025-01-28 17:50 | NUR ---
pt continued to have blood in urine, is incont, up to chair for dinner, with bed change, call light in reach.
[2025-01-28 19:35] VITALS: BP 176/98
[2025-01-28 23:30] VITALS: BP 161/87
[2025-01-29 03:47] VITALS: BP 171/94
[2025-01-29 03:50] VITALS: BP 167/91
[2025-01-29 05:42] LABS: Albumin, Blood 2.7 g/dL (3.4-5.0); Anion Gap 10 mmol/L (3-11); Blood Urea Nitrogen 11 mg/dL (8-24); CO2, Blood 27 mmol/L (21-32); Calcium, Blood 8.5 mg/dL (8.5-10.1); Chloride, Blood 106 mmol/L (98-108); Creatinine, Blood 0.54 mg/dL (0.40-1.00); Glucose, Blood 65 mg/dL (70-99); Phosphorus, Blood 1.2 mg/dL (2.5-4.9); Potassium, Blood 3.3 mmol/L (3.5-5.5); Sodium, Blood 140 mmol/L (136-145)
--- NOTE | 2025-01-29 06:34 | NUR ---
SHIFT SUMMARY PT A&OX3-4 AND ANSWERS QUESTIONS APPROPRIATELY. PT HAS NO COMPLAINTS OF PAIN, HAS DIFFICULTY GETTING TO SLEEP. MELATONIN ORDERED AND ADMINISTERED, PT ABLE TO SLEEP AFTER INTERVENTION. VSS, BP ELEVATED BUT STABLE. NO COMPLAINTS OF [id number] OR SOB. PT ATTENDS CHANGED PRN. PT URINE STILL RED AND BLOOD. PT SPENT MOST OF SHIFT IN BED RESTING QUIETLY. NO ACUTE EVENTS AT THIS TIME. PT LEFT IN A POSITION OF SAFETY AND COMFORT WITH BED IN LOW POSITION, FALL PRECAUTIONS IN PLACE AND CALL LIGHT IN REACH.
[2025-01-29 07:21] VITALS: BP 170/96
[2025-01-29 10:47] LABS: Hematocrit 35.5 % (33.0-51.0); Hemoglobin 11.7 g/dL (11.5-16.0)
[2025-01-29 11:19] VITALS: BP 159/99
[2025-01-29] MEDS ORDERED: ONDA4ODT MM (14:04)
[2025-01-29] MEDS ORDERED: MIRALAX17 GM PO (14:05)
[2025-01-29] MEDS ORDERED: CEPH500 PO (14:06)
[2025-01-29] MEDS ORDERED: PHOS-NAK PO (14:07)
--- NOTE | 2025-01-29 14:26 | NUR ---
REVIEWED DISCHARGE INSTRUCTIONS WITH PATIENT. REVIEWED NEW MEDICATIONS AND FOLLOW UP APPOINTMENT. PATIENT HAD NO QUESTIONS OR CONCERNS.
[2025-01-29 19:37] LABS: ALPHA 1 GLOBULIN 0.33 g/dL (0.19-0.46); ALPHA 2 GLOBULIN 0.71 g/dL (0.48-1.05); BETA GLOBULIN 0.58 g/dL (0.48-1.10); GAMMA 0.57 g/dL (0.62-1.51); IMMUNOFIXATION REFLEX IFE Done
[2025-01-29] MEDS ORDERED: Potassium Phos/Sodium Phos 250 MG PACK PO SCH (21:00)
== END 2025-01-29 14:40 | disposition home or self-care (01) | DRG 683 ==
LOC: ER 10:35 → MEDS 12:23 → ICUE 12:23 → MEDS 01-27 23:40 → ENPENDDIS 01-29 13:39 → MEDS 01-29 14:40
PROVIDERS: Emergency Medicine; Hospitalist; ADMIT Family Medicine
PROC: 0T9B70Z Drainage of Bladder with Drainage Device, Via Natural or Artificial Opening (ICD-10-PCS; principal; 2025-01-25)
PROC: 3E03329 Introduction of Other Anti-infective into Peripheral Vein, Percutaneous Approach (ICD-10-PCS; 2025-01-25)
PROC: 30233J1 Transfusion of Nonautologous Serum Albumin into Peripheral Vein, Percutaneous Approach (ICD-10-PCS; 2025-01-25)
PROC: 3E033XZ Introduction of Vasopressor into Peripheral Vein, Percutaneous Approach (ICD-10-PCS; 2025-01-25)
DX: N17.0 Acute kidney failure with tubular necrosis (principal); E44.0 Moderate protein-calorie malnutrition; E87.1 Hypo-osmolality and hyponatremia; N39.0 Urinary tract infection, site not specified; I50.32 Chronic diastolic (congestive) heart failure; E87.20 Acidosis, unspecified; Z68.1 Body mass index [BMI] 19.9 or less, adult; E87.6 Hypokalemia; E83.39 Other disorders of phosphorus metabolism; I11.0 Hypertensive heart disease with heart failure; I25.10 Atherosclerotic heart disease of native coronary artery without angina pectoris; G62.9 Polyneuropathy, unspecified; I95.9 Hypotension, unspecified; F17.210 Nicotine dependence, cigarettes, uncomplicated; E87.8 Other disorders of electrolyte and fluid balance, not elsewhere classified; K58.1 Irritable bowel syndrome with constipation; G89.4 Chronic pain syndrome; L89.152 Pressure ulcer of sacral region, stage 2; D64.9 Anemia, unspecified; B96.20 Unspecified Escherichia coli [E. coli] as the cause of diseases classified elsewhere; R31.9 Hematuria, unspecified; Z88.1 Allergy status to other antibiotic agents; I25.2 Old myocardial infarction; Z79.891 Long term (current) use of opiate analgesic
CPT/HCPCS: 36415; 51703; 51798; 71045; 74176; 76770; 80048; 80053; 80069; 81001; 82784; 82803; 83521; 83605; 83930; 84155; 84165; 85014; 85018; 85025; 86334; 87040; 87077; 87086; 87186; 87335; 87340; 87428-QW; 87507; 93005; 93010; 96361; 96365; 96375; 99285-25; A9270; G0480; J0696; J1644; J2405; J2765; J7030; J7050; J7060; J7070; J7120; P9047